=== PATIENT | female | born 1955 | race Caucasian/White ===

== ENCOUNTER → 2017-07-04 | Outpatient (CLI) | payer BC ==
--- NOTE | 2017-07-04 11:27 | DIAGNOSTIC IMAGING REPORT ---
L-SPINE MIN 4 VIEWS ROUTINE HISTORY: 61 years-old Female G57.02,M54.32 acute low back pain without reported trauma COMPARISON: None available TECHNIQUE: 5 views of the lumbar spine FINDINGS: No spondylolysis or spondylolisthesis. Severe intervertebral disc space narrowing at L5-S1. Multilevel endplate spurring with moderate facet arthrosis at L4-L5 and L5-S1. No acute fracture or subluxation identified. Surgical clips are seen within the right upper abdomen suggesting prior cholecystectomy. Mild degenerative changes of the bilateral hips. IMPRESSION: 1. No acute fracture or subluxation. 2. Severe intervertebral disc space narrowing at L5-S1 The above report was generated using voice recognition software. It may contain grammatical, syntax or spelling errors. Electronically signed by: Jordy Ballesteros M.D. 07/04/2017 11:26 AM Dictated Date/Time: 07/04/2017 11:24 AM
== END | disposition home or self-care (01) ==
LOC: C.RAD1850 11:06
PROVIDERS: ATTEND Family Medicine
DX: M48.07 Spinal stenosis, lumbosacral region (principal); M54.32 Sciatica, left side

== ENCOUNTER → 2017-07-28 | Day surgery (SDC) | payer BC, OTHER ==
[2017-07-12 09:48] VITALS: Ht 170.2 cm; Wt 68.2 kg
[~2017-07-28] VITALS: Ht 170.2 cm; Wt 68.2 kg
[~2017-07-28] MED LIST: ACET-1256 PO; LIDOCAINE HCL 1% MPF 5 ML VIAL ONE; SODIUM CHLORIDE 0.9% INJ 10 ML VIAL ONE; WARF10TA4 PO
--- NOTE | 2017-07-28 14:12 | History & Physical Bridge - [place] ---
H&P Re-Evaluation Bridge Note: I have examined the patient, reviewed the History & Physical and in the interval since the performance of the History & Physical I have noted the following changes of clinical significance: No changes noted
[2017-07-28 14:35] VITALS: BP 138/88; PULSE 76; TEMP 37; O2SAT 97
--- NOTE | 2017-07-28 14:40 | Discharge Instructions ---
Discharge Instructions Date of Service Jul 28, 2017. Visit Reason for Visit: Lumbar Radiculopathy Discharge Discharge Diagnosis / Problem: left leg pain Discharge Goals Goal(s): Decrease discomfort, Improve function Activity Recommendations Activity Limitations: resume your previous activity Anesthesia . Post Anesthesia Instructions: If you have had General Anesthesia or IV Sedation: * Do not drive today. * Resume driving when surgeon permits. * Do not make important decisions or sign legal documents today. * Call surgeon for: 1. Temperature elevations greater than 101 degrees F. 2. Uncontrollable pain. 3. Excessive bleeding. 4. Persistent nausea and vomiting. 5. Medication intolerance (nausea, vomiting or rash). * For nausea and vomiting use only clear liquids such as: tea, soda, bouillon until nausea subsides, then gradually increase diet as tolerated. * If you have any concerns or questions, call your surgeon's office. If physician is unavailable and it is an emergency, call 911 or go to the nearest emergency room. . Diet Recommendations Recommended Home Diet: no limitations Procedures Procedures Performed: CAUDAL EPIDURAL STEROID INJECTION Pending Studies Studies pending at discharge: no Medical Emergencies . Who to Call and When: Medical Emergencies: If at any time you feel your situation is an emergency, please call 911 immediately. . Non-Emergent Contact Non-Emergency issues call your: Specialist . . "Provider Documentation" section prepared by Anjum Osman. .
--- NOTE | 2017-07-28 15:18 | OPERATIVE REPORT ---
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 POSTOPERATIVE DIAGNOSIS: Same. PROCEDURE: Caudal epidural steroid injection under fluoroscopic guidance. SURGEON: Dr. Anjum Osman. INDICATIONS: The patient is a 61-year-old white female who is an avid runner who has been having difficulty running. MRI revealed vacuolated L5-S1 disc with arthritic changes, stenotic changes and clinical examination was consistent with an S1 radiculopathy. She presents today for an epidural injection to provide her with relief. It will be via the caudal approach as she is on anticoagulation for her thrombin 3 deficiency. PHYSICAL EXAMINATION: GENERAL: Pleasant female seated comfortably. MUSCULOSKELETAL: Lumbar paraspinal muscles were palpated and noted be nontender. She has some point tenderness to palpation of the back. Shocking sensation was noted in the left leg with simple extension. She had no focal weakness. CONSENT: Verbal and written consent was obtained from the patient. Risks and benefits were reviewed. Risks include but are not limited to epidural abscess, epidural hematoma, allergic reaction. The patient wishes to proceed. PROCEDURE: The patient was taken back to the special procedures room of the [facility] where she was maintained in a prone position. Backside was cleansed with Betadine x3 and a dry sterile dressing was applied. Fluoroscope was used to identify the sacral hiatus and overlying skin was anesthetized with 3 mL of lidocaine 1% with a 25 gauge 1.5-inch needle. A 25 gauge 3.5 inch needle was then directed under lateral fluoroscopic guidance into the sacral canal. She then underwent injection after negative aspiration of 40 mg of Depo-Medrol and 4 mL of preservative free sodium chloride, which was well tolerated. DISPOSITION: 1. The patient is taken out into the discharge recovery area where she will be discharged home once discharge criteria have been met. 2. Follow up in the [facility] office in 2-4 weeks. I attest to the content of the Intraoperative Record and any orders documented therein. Any exception s are noted below.
== END | disposition home or self-care (01) ==
LOC: X.SURG 13:27
PROVIDERS: ATTEND Physical Medicine & Rehabilitation
DX: M48.061 Spinal stenosis, lumbar region without neurogenic claudication (principal); D68.59 Other primary thrombophilia; Z79.01 Long term (current) use of anticoagulants